=== PATIENT | female | born 1945 | race Caucasian/White ===

== ENCOUNTER 2018-07-09 05:38 | Day surgery (SDC) | payer MEDICARE, OTHER ==
[~2018-07-09 05:38] MED LIST: Buffered Lidocaine 1% SYRIN* 1 ML/SYRINGE INTRADERM ONE
[2018-07-09] MEDS ORDERED: Lactated Ringers 1000 ML Bag* 1,000 ML IV SCH (06:00)
[2018-07-09] MEDS ORDERED: Dexamethasone IV* 4 MG/ML 1 ML (4 MG) IV SLOW PU ONE (06:00)
[2018-07-09] MEDS ORDERED: Famotidine IV* 10 MG/ML 2 ML (20 mg) IV ONE (06:00)
[2018-07-09] MEDS ORDERED: Famotidine IV* 10 MG/ML 2 ML (20 mg) ONE (06:43)
[2018-07-09] MEDS ORDERED: Dexamethasone IV* 4 MG/ML 1 ML (4 MG) ONE (06:43)
[2018-07-09] MEDS ORDERED: ceFAZolin 2 GM PREMIX in ORs 2 GM/50 ML BAG IVPB ONE (06:43)
[2018-07-09] MEDS ORDERED: Bupivacaine 0.5%* 50 ML VIAL ONE (06:47)
[2018-07-09] MEDS ORDERED: EPINEPHRINE 1 MG/ML 1 ML VIAL ONE (06:47)
[2018-07-09] MEDS ORDERED: Midazolam* 1 MG/ML 2 ML VIAL (2 MG) ONE (07:12)
[2018-07-09] MEDS ORDERED: fentaNYL* 50 MCG/ML 2 ML VIAL (100 MCG VIAL) ONE (07:12)
[2018-07-09] MEDS ORDERED: Propofol* 10 MG/ML 20 ML BTL ONE (07:15)
[2018-07-09] MEDS ORDERED: Lidocaine 2% PF * 5 ML VIAL ONE (07:15)
[2018-07-09] MEDS ORDERED: Naloxone* 0.4 MG/ML 1 ML VIAL IV PRN (07:55)
[2018-07-09] MEDS ORDERED: oxyCODONE/Acetamin 5/325 MG* TAB PO PRN (07:55)
[2018-07-09] MEDS ORDERED: Ketorolac INJ* 30 MG/ML 1 ML VIAL IV PRN (07:55)
[2018-07-09] MEDS ORDERED: Morphine VIAL* 4 MG/ML VIAL (1 ml vial) IV PRN (07:55)
[2018-07-09] MEDS ORDERED: DiMENhydriNATE IV* 50 MG/ML VIAL IV PUSH PRN (07:55)
[2018-07-09] MEDS ORDERED: Acetaminophen TAB* 325 MG PO PRN (07:55)
[2018-07-09] MEDS ORDERED: fentaNYL* 50 MCG/ML 2 ML VIAL (100 MCG VIAL) IV PRN (07:55)
[2018-07-09] MEDS ORDERED: Ondansetron INJ* 2 MG/ML VIAL ONE (08:26)
[2018-07-09] MEDS ORDERED: methylPREDNISolone ACETATE 40* 40 MG/ML 1 ML VIAL ONE (08:36)
[2018-07-09] MEDS ORDERED: Ketorolac INJ* 30 MG/ML 1 ML VIAL ONE (09:07)
[2018-07-09] MEDS ORDERED: oxyCODONE/Acetamin 5/325 MG* TAB ONE (09:35)
[2018-07-09 10:00] VITALS: BP 178/98
[2018-07-09 10:20] LABS: Body Fluid Source Synovial Fluid
[2018-07-09 11:52] LABS: Body Fluid Mono 21 %
--- NOTE | 2018-07-10 23:21 | OP ---
DATE OF OPERATION: 07/09/18 - [facility] DATE OF : 49 SURGEON: Dr. Brandon Last. HYDRATE THICKENER OPERATOR: BIANCA Null. A physician executive personal assistant was required for the length of the procedure for assistance with positioning, instrumentation, knee manipulation and closure. ANESTHESIOLOGIST: Dr. Pelon Pugh. ANESTHESIA: General anesthesia. PRE-OP DIAGNOSES: 1. Right knee osteoarthritis 2. Right knee persistent severe effusion. POST-OP DIAGNOSES: 1. Right knee osteoarthritis 2. Right knee persistent severe effusion. 3. 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 OPERATIVE PROCEDURE: 1. Right knee arthroscopic evaluation, diagnostic arthroscopy, with synovial biopsy. 2. Right knee arthroscopic extensive synovectomy, multiple compartments. ANTIBIOTICS: Ancef 2 g IV. IV FLUIDS: Crystalloids 1300 cc. TOURNIQUET TIME: 53 minutes at 300 mmHg. SKIN TO SKIN TIME: 47 minutes. SPECIMEN: Fluid, joint, was sent for analysis for Gram stain culture, crystals , cell count, aerobic, anaerobic, fungal cultures as well as for Lyme disease testing. Multiple samples of joint lining synovium were sent for solid pathology for analysis. ARTHROSCOPIC FLUID UTILIZED: Not recorded. COMPLICATIONS: None. ESTIMATED BLOOD LOSS: Minimal. 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 There was no traumatic antecedent. The patient had not previously had difficulties with her right knee. Her main complaint was of swelling about the knee. On exam, I noted immediately a significantly large effusion that tracked up into the distal and mid thigh anteriorly. At one clinic visit, I aspirated 225 cc of joint fluid. I injected cortisone and at another clinic visit, I aspirated 160 cc of joint fluid. I sent the patient's fluid for bacterial workup, crystal examination and Lyme disease testing, but all was negative. The patient was also tried with physical therapy and NSAIDs. I sent the patient to Dr. Farrell of Rheumatology, who found her workup to be negative for rheumatologic ailment. The patient also tired Voltaren gel with minimal relief. Both Dr. Farrell and myself thought that a synovial biopsy would be appropriate given the size and persistence of the patient's effusion. MRI imaging had shown synovitis through the joint and so planned synovectomy as well. I was able to note down preoperative MRI imaging that the joint appeared to extend at least an 11 cm proximal to the proximal pole of the patella. There were some signs of osteoarthritis. The patient's preoperative imaging did show arthritic changes with osteophytes in the medial compartment, severe joint space narrowing medially, close to [id number], and osteophytes in the patellofemoral compartment with at least mild to moderate joint space narrowing. MRI also showed degenerative changes and osteophytes, but effusion way out of proportion to arthritic changes. The fluid tracked so far up into the thigh proximally that I obtained an MRI of the thigh as well as MRI of the knee to rule out a cause of the swelling such as a tumor in the thigh. None was found. We opted to proceed forward with diagnostic arthroscopy and synovectomy. Discussed risks and potential complications of surgery. DESCRIPTION OF PROCEDURE: In preoperative holding, the patient signed a written consent. Operative extremity was marked in preoperative holding. The patient was taken back to the operating room and placed supine on the operating table. Sedated and intubated. A tourniquet was placed around the right proximal thigh. The right lower extremity was prepped and draped. A thigh post was placed along the table. The foot of the table was kept up. The right lower extremity was prepped and draped. Surgical time out was performed. Esmarch was applied and the tourniquet was elevated to 300 mmHg. I made a right knee anterolateral knee arthroscopy and skin incision using standard technique. Significant quantity of fluid was expressed through the arthroscopy cannula. A volume of this fluid was sent for analysis as described earlier in the operative note. Diagnostic arthroscopy was commenced. The patient had significant quantity of fronds of synovitic tissue throughout the suprapatellar space. I took multiple photographs. Some of them were yellow, some red, some brownish. I established an anteromedial knee arthroscopy portal under direct visualization. I debrided some of these fronds. I then removed multiple tissue samples both from the fronds and from the superior aspect of the capsule with bitters and graspers. I sent these to Pathology. I debrided with the largest sized arthroscopic shaver available this synovitic frond like tissue throughout the suprapatellar space. I worked through superomedial and superolateral portals and visualized both from anterolateral as well as from superolateral. Visualizing the patellofemoral compartment, there was damage ranging from grade 2 to grade 4 of the articular cartilage. I dropped down to the anterior aspect of the knee. I debrided additional synovitic tissue working from both anterolateral and then anteromedial. I debrided synovitic tissue just anterior to the ACL and the PCL. I visualized the medial compartment. There was significant wear in the medial compartment, mostly grade 4 of both the medial femoral condyle and medial tibial plateau. There was some tearing of the medial meniscus that I smoothed out with an arthroscopic shaver but no large displaced fragment. I moved to the lateral compartment. There was more variable damage in the lateral compartment ranging from grade 2 to grade 4. I debrided additionally anteriorly. Under direct visualization, I moved one of my cannulas into the posterior lateral compartment. There was no colored synovitic tissue there, so I decided that no posterolateral compartment debridement was required. I entered the posteromedial compartment but visualization was poor secondary to arthritic changes. I retuned to multiple compartments of the knee, removing any darkly colored synovium and that could possibly be a productive PVNS type tissue. I debrided this with a large aggressive arthroscopic shaver as well as, several times with a VAPR electrocautery device. With all the visible inflamed synovial tissue removed from throughout the knee, the biopsy and fluid samples having been obtained, I removed the instruments and fluid from the knee. I closed the six skin incisions portals that I had made with [id number] and 12 stitches using nylon 3-0 suture. I then injected cortisone, 3 cc of 40 mg per mL for a total of 120 mg of Depo-Medrol into the knee joint. Xeroform, 4x4s, ABDs, sterile Webril, Denis bandage from foot to proximal thigh. Cooling unit applied. DISPOSITION: The patient was awakened, extubated and brought to the PACU. She was discharged to home when she met medical criteria. She is to follow up with me in 10 to 14 days postoperatively in clinic. She was given Percocet to take as needed for pain control as well as Keflex to take x7 days for infection prophylaxis given the large quantity of effusion in her knee and her propensity for fluid production, I was concerned about the possibility of a fistula to skin developing. The patient will start physical therapy. Wound care instructions provided. [id number]/[facility] #: [id number] [facility]
[2018-07-11 16:40] LABS: B. garinii/B. afzellii PCR Negative (Negative)
== END 2018-07-09 10:08 | disposition home or self-care (01) ==
LOC: OR 05:38
PROVIDERS: ATTEND Orthopaedic Surgery
DX: M12.261 Villonodular synovitis (pigmented), right knee (principal); M25.461 Effusion, right knee; I10 Essential (primary) hypertension; K21.9 Gastro-esophageal reflux disease without esophagitis; F41.8 Other specified anxiety disorders
CPT/HCPCS: 36415; 87070; 87073; 87102; 87205; 87476; 87640; 87641; 87798; 88305; 89051; A9270-GY; J0690; J1030; J1100; J1885; J2250; J2405; J2704; J3010